=== PATIENT | male | born 1965 | race Caucasian/White ===

== ENCOUNTER 2019-12-10 09:36 | Inpatient (IN) | payer OTHER ==
[~2019-12-10] VITALS: Ht 193 cm; Wt 133.8 kg
[~2019-12-10 09:36] MED LIST: LISI-167 PO; OMEP40CA42 PO; RIVA15TA PO; RIVA20TA PO; TAMS0.4C2 PO
[2019-12-10] MEDS ORDERED: LACTATED RINGERS 1,000 ML IV SCH (10:30)
[2019-12-10 10:59] VITALS: BP 150/94
[2019-12-10] MEDS ORDERED: OXYB5TAB10 PO (10:59)
[2019-12-10] MEDS ORDERED: RIVA20TA PO (10:59)
[2019-12-10] MEDS ORDERED: CHLORHEXIDINE 15 ML UDC MM ONE (11:00)
[2019-12-10] MEDS ORDERED: FENTANYL PF 250 MCG/5ML ONE (11:16)
[2019-12-10] MEDS ORDERED: MIDAZOLAM 1 MG/ML, 2ML ONE (11:16)
[2019-12-10] MEDS ORDERED: CIPROFLOXACIN/PMX 400MG/200ML 200 ML ONE (11:47)
[2019-12-10] MEDS ORDERED: OPIUM/BELLADONNA SUPP.RECT 16.2-60 MG ONE (11:57)
[2019-12-10] MEDS ORDERED: hydrALAzine 20 MG/ML, 1ML IV PRN (12:00)
[2019-12-10] MEDS ORDERED: ONDANSETRON 2MG/ML, 2ML IVPush PRN (12:00)
[2019-12-10] MEDS ORDERED: LORazepam 2 MG/ML, 1ML IVPush PRN (12:00)
[2019-12-10] MEDS ORDERED: ACETAMINOPHEN 325 MG TABLET PO PRN (12:00)
[2019-12-10] MEDS ORDERED: PROMETHAZINE 25 MG SUPP PR PRN (12:00)
[2019-12-10] MEDS ORDERED: OXYcodone 5 MG/5 ML ORAL.SOL UDC PO PRN (12:00)
[2019-12-10] MEDS ORDERED: MEPERIDINE/PF 25MG/0.5ML IVPush PRN (12:00)
[2019-12-10] MEDS ORDERED: PROMETHAZINE 12.5 MG SUPP PR PRN (12:00)
[2019-12-10] MEDS ORDERED: PROMETHAZINE 25 MG/ML, 1ML IVPush PRN (12:00)
[2019-12-10] MEDS ORDERED: LABETALOL 5MG/ML, 20ML IV PRN (12:00)
[2019-12-10] MEDS ORDERED: HYDROmorphone 1 MG/ML, 1ML INJ IVPush PRN (12:00)
[2019-12-10] MEDS ORDERED: DEXAMETHASONE 4 MG/ML, 1ML ONE (12:35)
[2019-12-10] MEDS ORDERED: SUCCINYLCHOLINE 20 MG/ML, 10ML ONE (12:35)
[2019-12-10] MEDS ORDERED: FENTANYL PF 100 MCG/2ML ONE ×2 (12:35→13:49)
[2019-12-10] MEDS ORDERED: ONDANSETRON 2MG/ML, 2ML ONE (12:35)
[2019-12-10] MEDS ORDERED: ROCURONIUM 10MG/ML,5ML ONE (12:35)
[2019-12-10] MEDS ORDERED: NEOSTIGMINE 1 MG/ML, 10ML ONE (12:35)
[2019-12-10] MEDS ORDERED: GLYCOPYRROLATE 0.2MG/1ML, 5ML ONE (12:35)
[2019-12-10] MEDS ORDERED: PROPOFOL 10 MG/ML, 20ML ONE (12:35)
[2019-12-10] MEDS ORDERED: CEFAZOLIN 1,000 MG ONE (12:35)
[2019-12-10] MEDS ORDERED: MEPERIDINE/PF 25MG/ML,1ML ONE (13:30)
[2019-12-10] MEDS ORDERED: PROMETHAZINE 25 MG/ML, 1ML ONE (13:49)
[2019-12-10] MEDS: FENTANYL PF 100 MCG/2ML IV PRN ×2 (13:55→14:05)
[2019-12-10 15:00] VITALS: BP 154/82
[2019-12-10] MEDS ORDERED: ONDANSETRON 2MG/ML, 2ML IV PRN (15:00)
[2019-12-10] MEDS ORDERED: OPIUM/BELLADONNA SUPP.RECT 16.2-60 MG PR PRN (15:00)
[2019-12-10] MEDS: ACETAMINOPHEN 500 MG TABLET PO SCH ×2 (15:43→21:13)
[2019-12-10] MEDS: OXYcodone IR 5MG TABLET PO PRN ×2 (15:44→22:55)
[2019-12-10] MEDS: D5%-0.45NACL+KCL 20MEQ 1,000 ML IV SCH (15:45)
[2019-12-10] MEDS ORDERED: RIVAROXABAN 20 MG TABLET PO SCH (17:00)
[2019-12-10] MEDS: SULFAMETH./TRIMETHOPRIM DS 800MG/160MG TABLET PO SCH (21:13)
[2019-12-10 21:24] VITALS: BP 164/79
[2019-12-11] MEDS: HYDROmorphone 2 MG/ML, 1ML IV PRN ×3 (01:13→06:25)
[2019-12-11 03:25] VITALS: BP 140/65
[2019-12-11] MEDS: D5%-0.45NACL+KCL 20MEQ 1,000 ML IV SCH (06:00)
[2019-12-11] MEDS ORDERED: OMEPRAZOLE 20 MG CAPSULE.DR PO SCH (06:00)
[2019-12-11] MEDS: ACETAMINOPHEN 500 MG TABLET PO SCH ×2 (06:25→12:00)
[2019-12-11 07:10] VITALS: BP 157/71
[2019-12-11] MEDS: SULFAMETH./TRIMETHOPRIM DS 800MG/160MG TABLET PO SCH (07:38)
[2019-12-11] MEDS: OXYcodone IR 5MG TABLET PO PRN (07:38)
[2019-12-11] MEDS ORDERED: LISINOPRIL 10 MG TABLET PO SCH (09:00)
[2019-12-11] MEDS ORDERED: Sulfameth./Trimethoprim Ds PO (09:29)
== END 2019-12-11 12:10 | disposition home or self-care (01) | DRG 713 ==
LOC: OUT 09:36 → 4NE 14:44 → OUT 14:50 → 4NE 14:54 → DCLOUNGE 12-11 11:59
PROVIDERS: ADMIT Urology; ATTEND Urology
PROC: 0V508ZZ Destruction of Prostate, Via Natural or Artificial Opening Endoscopic (ICD-10-PCS; principal; 2019-12-10 11:30)
DX: N40.1 Benign prostatic hyperplasia with lower urinary tract symptoms (principal); N39.0 Urinary tract infection, site not specified; N13.8 Other obstructive and reflux uropathy; R33.8 Other retention of urine; Z88.0 Allergy status to penicillin; Z87.891 Personal history of nicotine dependence
CPT/HCPCS: 87635; G0378; J0690; J0744; J1100; J1170; J2175; J2250; J2405; J2550; J2704; J2710; J3010; J0330; J3480; J7120

== ENCOUNTER 2019-12-14 00:51 | Inpatient (IN) | payer OTHER ==
[~2019-12-14] VITALS: Ht 182.9 cm; Wt 135.1 kg
[~2019-12-14 00:51] MED LIST changes: +OXYB5TAB10 PO; +Sulfameth./Trimethoprim Ds PO
--- NOTE | 2019-12-14 01:10 | NUR ---
REPORT GIVEN TO ARIA GARZA
[2019-12-14] MEDS ORDERED: ONDANSETRON 2MG/ML, 2ML IVPush ONE (01:30)
[2019-12-14] MEDS ORDERED: SODIUM CHLORIDE FLUSH 10ML SYR IVF ONE (01:30)
[2019-12-14] MEDS ORDERED: SODIUM CHLORIDE 0.9% 1,000ML IVBOLUS ONE (01:30)
[2019-12-14] MEDS ORDERED: MORPHINE SULFATE 4 MG/ML, 1ML IVPush PRN ×2 (01:30→05:30)
[2019-12-14] MEDS ORDERED: MORPHINE SULFATE 4 MG/ML, 1ML ONE ×2 (01:53→04:06)
[2019-12-14] MEDS ORDERED: ONDANSETRON 2MG/ML, 2ML ONE (01:53)
--- NOTE | 2019-12-14 02:21 | NUR ---
IV STARTED, LABS DRAWN AND SENT, UA OBTAINED. IVF BOLUS STARTED AND MEDICATIONS GIVEN PER EMAR. BLADDER SCAN 258ML. POST RESIDUAL 196ML
[2019-12-14 02:37] LABS: BASOPHILS # (AUTO) 0.02 x10^3/uL (0-0.1); BASOPHILS % (AUTO) 0 % (0-1); EOSINOPHILS # (AUTO) 0.15 x10^3/uL (0-0.4); EOSINOPHILS % (AUTO) 2 % (1-7); LYMPHOCYTES # (AUTO) 0.54 x10^3/uL (1-3.4); LYMPHOCYTES % (AUTO) 6 % (22-44); MD NO; MEAN CORPUSCULAR HEMOGLOBIN 28.5 pg (27.5-34.5); MEAN CORPUSCULAR HGB CONC 33.8 g/dL (33.2-36.2); MEAN CORPUSCULAR VOLUME 84.4 fL (81-97); MEAN PLATELET VOLUME 7.4 fL (7.4-10.4); MONOCYTES # (AUTO) 0.61 x10^3/uL (0.2-0.8); MONOCYTES % (AUTO) 7 % (2-9); NEUTROPHILS # (AUTO) 7.63 x10^3/uL (1.8-6.8); NEUTROPHILS % (AUTO) 85 % (42-75); PLATELET COUNT 152 x10^3/uL (130-400); RED BLOOD COUNT 5.65 x10^6/uL (4.38-5.82); RED CELL DISTRIBUTION WIDTH 15.8 % (9.4-14.8)
[2019-12-14 02:39] LABS: MICROSCOPIC INDICATED
[2019-12-14 02:47] LABS: ALBUMIN 3.7 g/dL (3.4-5.0); ANION GAP 7 mmol/L (5-15); CALCIUM 8.6 mg/dL (8.5-10.1); CHLORIDE 107 mmol/L (98-107)
[2019-12-14 02:50] LABS: ALANINE AMINOTRANSFERASE 76 U/L (12-78); ALKALINE PHOSPHATASE 48 U/L (45-117); BILIRUBIN,TOTAL 0.7 mg/dL (0.2-1.0); CREATININE 1.11 mg/dL (0.7-1.3); TOTAL PROTEIN 7.2 g/dL (6.4-8.2)
--- NOTE | 2019-12-14 03:05 | NUR ---
HERNANDEZ CATHETER INSERTED UTILIZING STERILE TECHNIQUE.
--- NOTE | 2019-12-14 04:11 | NUR ---
PT TO AND FROM CT. AWAITING RESULTS.
--- NOTE | 2019-12-14 04:13 | NUR ---
TASK RN: PT REQUESTING MORE PAIN MEDICATION. PT MEDICATED FOR PAIN PER EMAR.
[2019-12-14] MEDS ORDERED: MORPHINE SULFATE 4 MG/ML, 1ML IVPush ONE (04:30)
[2019-12-14] MEDS ORDERED: OMNIPAQUE 350 MG/ML, 100ML BOTTLE ONE (04:38)
[2019-12-14] MEDS ORDERED: GENTAMICIN PER PHARMACY MC PRN (05:00)
[2019-12-14] MEDS ORDERED: SODIUM CHLORIDE 0.9% 1,000 ML IV ONE (05:01)
[2019-12-14] MEDS ORDERED: LEVOFLOXACIN/PMX 750MG/150ML 150 ML ONE (05:06)
[2019-12-14] MEDS: LEVOFLOXACIN/PMX 750MG/150ML 150 ML IV SCH (05:15)
[2019-12-14] MEDS ORDERED: SODIUM CHLORIDE FLUSH 10ML SYR IVF PRN (05:30)
[2019-12-14] MEDS ORDERED: ONDANSETRON 2MG/ML, 2ML IVPush PRN (05:30)
[2019-12-14] MEDS ORDERED: PROMETHAZINE 25 MG/ML, 1ML IM PRN (05:30)
--- NOTE | 2019-12-14 05:41 | NUR ---
LEVAQUIN STARTED ON IV PUMP. AWAITING INPATIENT BED PLACEMENT.
[2019-12-14 06:30] VITALS: BP 142/84
[2019-12-14 07:45] VITALS: BP 140/77
[2019-12-14 08:06] VITALS: BP 140/77
[2019-12-14] MEDS ORDERED: RIVAROXABAN 20 MG TABLET PO SCH ×2 (10:30→17:00)
[2019-12-14] MEDS ORDERED: OPIUM/BELLADONNA SUPP.RECT 16.2-60 MG PR PRN (13:00)
[2019-12-14 13:36] VITALS: BP 150/82
[2019-12-14] MEDS: OXYcodone IR 5MG TABLET PO PRN ×2 (13:38→23:06)
[2019-12-14] MEDS: ACETAMINOPHEN 325 MG TABLET PO PRN ×2 (13:38→23:05)
[2019-12-14] MEDS: DOCUSATE 100 MG CAPSULE PO SCH (13:38)
[2019-12-14] MEDS: LISINOPRIL 10 MG TABLET PO SCH (13:38)
[2019-12-14 19:00] VITALS: BP 144/80
[2019-12-15 01:46] VITALS: BP 150/82
[2019-12-15] MEDS: LEVOFLOXACIN/PMX 750MG/150ML 150 ML IV SCH (04:58)
[2019-12-15 05:33] LABS: BASOPHILS # (AUTO) 0.04 x10^3/uL (0-0.1); BASOPHILS % (AUTO) 1 % (0-1); EOSINOPHILS # (AUTO) 0.32 x10^3/uL (0-0.4); EOSINOPHILS % (AUTO) 4 % (1-7); LYMPHOCYTES # (AUTO) 1.46 x10^3/uL (1-3.4); LYMPHOCYTES % (AUTO) 16 % (22-44); MD NO; MEAN CORPUSCULAR HEMOGLOBIN 28.4 pg (27.5-34.5); MEAN CORPUSCULAR HGB CONC 33.7 g/dL (33.2-36.2); MEAN CORPUSCULAR VOLUME 84.3 fL (81-97); MEAN PLATELET VOLUME 7.3 fL (7.4-10.4); MONOCYTES # (AUTO) 0.94 x10^3/uL (0.2-0.8); MONOCYTES % (AUTO) 11 % (2-9); NEUTROPHILS # (AUTO) 6.21 x10^3/uL (1.8-6.8); NEUTROPHILS % (AUTO) 69 % (42-75); PLATELET COUNT 157 x10^3/uL (130-400); RED BLOOD COUNT 5.45 x10^6/uL (4.38-5.82); RED CELL DISTRIBUTION WIDTH 15.6 % (9.4-14.8)
[2019-12-15 05:36] LABS: ANION GAP 6 mmol/L (5-15); CALCIUM 8.2 mg/dL (8.5-10.1); CHLORIDE 107 mmol/L (98-107)
[2019-12-15 05:37] LABS: CREATININE 0.88 mg/dL (0.7-1.3)
[2019-12-15] MEDS ORDERED: RIVAROXABAN 20 MG TABLET PO SCH (06:00)
[2019-12-15 06:22] VITALS: BP 151/82
[2019-12-15] MEDS: DOCUSATE 100 MG CAPSULE PO SCH (08:45)
[2019-12-15] MEDS: LISINOPRIL 10 MG TABLET PO SCH (08:45)
[2019-12-15] MEDS: ACETAMINOPHEN 325 MG TABLET PO PRN (09:34)
[2019-12-15] MEDS: OXYcodone IR 5MG TABLET PO PRN (09:36)
[2019-12-15] MEDS ORDERED: OXYB5TAB10 PO (12:17)
[2019-12-15] MEDS ORDERED: LEVO750T26 PO (12:17)
== END 2019-12-15 16:11 | disposition home or self-care (01) | DRG 690 ==
LOC: ED 05:08 → EDIP 05:45 → 3N 06:41 → DCLOUNGE 12-15 15:59
PROVIDERS: ADMIT Urology; ATTEND Urology
DX: N39.0 Urinary tract infection, site not specified (principal); I10 Essential (primary) hypertension; N40.1 Benign prostatic hyperplasia with lower urinary tract symptoms; R33.8 Other retention of urine; N32.89 Other specified disorders of bladder; Z86.711 Personal history of pulmonary embolism; Z79.01 Long term (current) use of anticoagulants
CPT/HCPCS: 36415; 74177; 80048; 80053; 81001; 83605; 84145; 85025; 87040; 87077; 87086; 96361; 96374; 96375; 96376; G0378; J1956; J2405; Q9967; J2270; J7030

== ENCOUNTER 2020-01-07 06:50 | Inpatient (IN) | payer OTHER ==
[~2020-01-07] VITALS: Ht 193 cm; Wt 139.7 kg
[~2020-01-07 06:50] MED LIST changes: +LEVO750T26 PO
[2020-01-07 07:30] LABS: BASOPHILS # (AUTO) 0.03 x10^3/uL (0-0.1); BASOPHILS % (AUTO) 0 % (0-1); EOSINOPHILS % (AUTO) 3 % (1-7); LYMPHOCYTES # (AUTO) 1.91 x10^3/uL (1-3.4); LYMPHOCYTES % (AUTO) 25 % (22-44); MD NO; MONOCYTES # (AUTO) 0.57 x10^3/uL (0.2-0.8); MONOCYTES % (AUTO) 8 % (2-9); NEUTROPHILS # (AUTO) 4.81 x10^3/uL (1.8-6.8); NEUTROPHILS % (AUTO) 64 % (42-75); PLATELET COUNT 267 x10^3/uL (130-400); RED BLOOD COUNT 5.59 x10^6/uL (4.38-5.82); RED CELL DISTRIBUTION WIDTH 16.6 % (9.4-14.8)
[2020-01-07] MEDS ORDERED: SODIUM CHLORIDE FLUSH 10ML SYR IVF ONE (07:30)
[2020-01-07] MEDS ORDERED: PROMETHAZINE 25 MG/ML, 1ML IM ONE (07:30)
[2020-01-07] MEDS ORDERED: ONDANSETRON 2MG/ML, 2ML IVPush ONE (07:30)
[2020-01-07] MEDS ORDERED: FENTANYL PF 100 MCG/2ML IVPush ONE ×2 (07:30)
[2020-01-07] MEDS ORDERED: FENTANYL PF 100 MCG/2ML ONE ×7 (07:32→15:14)
[2020-01-07] MEDS ORDERED: ONDANSETRON 2MG/ML, 2ML ONE ×2 (07:32→14:42)
[2020-01-07] MEDS ORDERED: PROMETHAZINE 25 MG/ML, 1ML ONE (07:32)
[2020-01-07 07:40] LABS: PROTHROMBIN TIME 10.6 Seconds (9.6-11.5)
[2020-01-07 07:43] LABS: ALANINE AMINOTRANSFERASE 104 U/L (12-78); ALBUMIN 3.7 g/dL (3.4-5.0); ANION GAP 7 mmol/L (5-15); CALCIUM 8.5 mg/dL (8.5-10.1); CHLORIDE 114 mmol/L (98-107); CREATININE 1.18 mg/dL (0.7-1.3)
[2020-01-07 07:45] LABS: ALKALINE PHOSPHATASE 49 U/L (45-117); BILIRUBIN,TOTAL 0.6 mg/dL (0.2-1.0); TOTAL PROTEIN 7.2 g/dL (6.4-8.2)
[2020-01-07] MEDS ORDERED: LIDOCAINE 2%,20 ML JEL.PF.APP MM ONE (07:45)
[2020-01-07] MEDS ORDERED: LISI-170 PO (09:16)
--- NOTE | 2020-01-07 09:17 | NUR ---
INSERTED 22FR 3-WAY HERNANDEZ FOR URINARY RETENTION WITH PAIN AND SMALL AMOUNT OF HEMATURIA/DYSURIA. PT TOLERATED WELL. CATHETER WAS INSERTED WITH NO RESISTANCE AND IMMEDIATE PURPLE MAROON COLORED URINE BEGAN FLOWING INTO THE CATHETER. CBI WAS INITIATED. UROLOGY JAIDEN GRANT, AT BEDSIDE FLUSHING BLADDER AND REMOVING CLOTS.
--- NOTE | 2020-01-07 09:33 | NUR ---
PT MEDICATED WITH AN ADDITIONAL 50MCG FOR PAIN.
[2020-01-07 09:43] LABS: MICROSCOPIC INDICATED
[2020-01-07] MEDS ORDERED: FENTANYL PF 100 MCG/2ML IV ONE ×2 (10:00)
--- NOTE | 2020-01-07 10:23 | NUR ---
SBAR HAND-OFF REPORT GIVEN TO ARIA MORATAYA.
[2020-01-07] MEDS ORDERED: LORazepam 1MG TABLET PO PRN (10:30)
[2020-01-07] MEDS ORDERED: hydrALAzine 20 MG/ML, 1ML IVPush PRN (10:30)
[2020-01-07] MEDS ORDERED: OPIUM/BELLADONNA SUPP.RECT 16.2-30 MG PR ONE (10:30)
[2020-01-07] MEDS ORDERED: ONDANSETRON 2MG/ML, 2ML IVPush PRN ×2 (10:30→15:00)
[2020-01-07] MEDS ORDERED: ONDANSETRON ODT 4 MG PO PRN (10:30)
[2020-01-07] MEDS ORDERED: CEFTRIAXONE PMX 1GM/50ML 50 ML IV ONE (10:30)
[2020-01-07] MEDS ORDERED: CEFTRIAXONE PMX 1GM/50ML 50 ML ONE (10:32)
--- NOTE | 2020-01-07 10:33 | NUR ---
TASK RN: SECOND 3L ML BAG OF IRRIGATION ADMINISTERD (URINE STILL MEDIUM PINK) UROLOGY AND HOSPITALIST TO BEDSIDE-PLAN TO HAVE CYSTOSCOPY THIS AFTERNOON MEDICATED PER EMAR WITH ADDITIONAL 50MCG OF FENTANYL SWEATING IN PAIN D/T MANULA IRRIGATION FOR UROLOGIST SAFETY OF ROCEPHIN QUESTIONED WITH HOSPITALIST/ER MD/PHARMCY-ASSURED SAFETY-ADMINISTERD PER PHARMACY
--- NOTE | 2020-01-07 10:44 | NUR ---
COVID SWAB OBTAINED-WALKED TO LAB (R/O TEST PLANNED OPERATION THIS AFTERNOON)
--- NOTE | 2020-01-07 10:45 | NUR ---
TO REACTION TO ROCEPHIN NOTED THUS FAR
--- NOTE | 2020-01-07 11:49 | NUR ---
SBAR TELEPHONE HAND-OFF REPORT GIVEN TO HEAVEN PRE-OP RN.
--- NOTE | 2020-01-07 12:00 | NUR ---
PT CONTINUES TO BE ON CONTINUOUS BLADDER IRRIGATION WITH URINE PALE PINK TO STRAWBERRY RED AT TIMES.
[2020-01-07] MEDS ORDERED: MIDAZOLAM 1 MG/ML, 2ML ONE (12:27)
[2020-01-07] MEDS: LACTATED RINGERS 1,000 ML IV SCH (12:32)
--- NOTE | 2020-01-07 12:48 | NUR ---
TRANSPORTED PATIENT ON RN MENTAL HEALTH TO PRE-OP ROOM 11. PT STABLE AND IN NSR.
[2020-01-07] MEDS ORDERED: CHLORHEXIDINE 15 ML UDC MM STA (13:04)
[2020-01-07] MEDS ORDERED: CHLORHEXIDINE 15 ML UDC ONE (13:06)
[2020-01-07] MEDS ORDERED: GLYCOPYRROLATE 0.2MG/1ML, 5ML ONE (14:42)
[2020-01-07] MEDS ORDERED: NEOSTIGMINE 1 MG/ML, 10ML ONE (14:42)
[2020-01-07] MEDS ORDERED: SUCCINYLCHOLINE 20 MG/ML, 10ML ONE (14:42)
[2020-01-07] MEDS ORDERED: DEXAMETHASONE 4 MG/ML, 1ML ONE (14:42)
[2020-01-07] MEDS ORDERED: CEFAZOLIN 1,000 MG ONE (14:42)
[2020-01-07] MEDS ORDERED: ROCURONIUM 10MG/ML,5ML ONE (14:42)
[2020-01-07] MEDS ORDERED: PROPOFOL 10 MG/ML, 20ML ONE (14:42)
[2020-01-07] MEDS ORDERED: LABETALOL 5MG/ML, 20ML IV PRN (15:00)
[2020-01-07] MEDS ORDERED: PROMETHAZINE 25 MG/ML, 1ML IVPush PRN (15:00)
[2020-01-07] MEDS ORDERED: LORazepam 2 MG/ML, 1ML IVPush PRN (15:00)
[2020-01-07] MEDS ORDERED: OXYcodone 5 MG/5 ML ORAL.SOL UDC PO PRN (15:00)
[2020-01-07] MEDS ORDERED: METHOCARBAMOL 1,000 MG in DEXTROSE 5% 100 ML IV PRN (15:00)
[2020-01-07] MEDS ORDERED: ACETAMINOPHEN 325 MG TABLET PO PRN (15:00)
[2020-01-07] MEDS ORDERED: HYDROmorphone 1 MG/ML, 1ML INJ IVPush PRN (15:00)
[2020-01-07] MEDS ORDERED: PROMETHAZINE 25 MG SUPP PR PRN (15:00)
[2020-01-07] MEDS ORDERED: hydrALAzine 20 MG/ML, 1ML IV PRN (15:00)
[2020-01-07] MEDS ORDERED: FENTANYL PF 100 MCG/2ML IV PRN (15:00)
[2020-01-07] MEDS ORDERED: MEPERIDINE/PF 25MG/0.5ML IVPush PRN (15:00)
[2020-01-07] MEDS ORDERED: OXYcodone 5 MG/5 ML ORAL.SOL UDC ONE (15:14)
[2020-01-07] MEDS: OXYcodone IR 5MG TABLET PO PRN ×2 (15:36→20:53)
[2020-01-07 16:25] VITALS: BP 107/69
[2020-01-07 19:06] VITALS: BP 113/69
[2020-01-07] MEDS: ACETAMINOPHEN 325 MG TABLET PO PRN (20:54)
[2020-01-07] MEDS: TEMAZEPAM 15 MG CAPSULE PO PRN (22:36)
[2020-01-08 01:24] VITALS: BP 113/68
[2020-01-08] MEDS: OXYcodone IR 5MG TABLET PO PRN ×5 (02:48→23:16)
[2020-01-08] MEDS: LACTATED RINGERS 1,000 ML IV SCH ×3 (02:54→16:30)
[2020-01-08 04:47] VITALS: BP 104/56
[2020-01-08 05:19] LABS: MEAN CORPUSCULAR HEMOGLOBIN 28.6 pg (27.5-34.5); MEAN CORPUSCULAR HGB CONC 33.4 g/dL (33.2-36.2); MEAN CORPUSCULAR VOLUME 85.6 fL (81-97); MEAN PLATELET VOLUME 7.4 fL (7.4-10.4); PLATELET COUNT 204 x10^3/uL (130-400); RED BLOOD COUNT 4.45 x10^6/uL (4.38-5.82); RED CELL DISTRIBUTION WIDTH 16.2 % (9.4-14.8)
[2020-01-08 05:22] LABS: ALANINE AMINOTRANSFERASE 77 U/L (12-78); ALBUMIN 2.9 g/dL (3.4-5.0); ANION GAP 5 mmol/L (5-15); CALCIUM 7.9 mg/dL (8.5-10.1); CHLORIDE 110 mmol/L (98-107); CREATININE 0.99 mg/dL (0.7-1.3)
[2020-01-08 05:33] LABS: ALKALINE PHOSPHATASE 43 U/L (45-117); BILIRUBIN,TOTAL 0.3 mg/dL (0.2-1.0); TOTAL PROTEIN 5.7 g/dL (6.4-8.2)
[2020-01-08 06:05] LABS: BASOPHILS % (AUTO) 0 % (0-1); EOSINOPHILS % (AUTO) 0 % (1-7); LYMPHOCYTES # (AUTO) 0.56 x10^3/uL (1-3.4); LYMPHOCYTES % (AUTO) 6 % (22-44); MD SCAN; MONOCYTES # (AUTO) 0.34 x10^3/uL (0.2-0.8); MONOCYTES % (AUTO) 3 % (2-9); NEUTROPHILS # (AUTO) 9.17 x10^3/uL (1.8-6.8); NEUTROPHILS % (AUTO) 91 % (42-75)
[2020-01-08 08:00] VITALS: BP 144/66
[2020-01-08] MEDS: ACETAMINOPHEN 325 MG TABLET PO PRN (08:11)
[2020-01-08] MEDS ORDERED: SODIUM PHOSPHATE 20 MMOL in SODIUM CHLORIDE 0.9% 500 ML IV ONE (09:00)
[2020-01-08] MEDS: CEFTRIAXONE PMX 1GM/50ML 50 ML IV SCH (10:38)
[2020-01-08] MEDS: morphine SULFATE 10 MG/ML, 1ML IVPush PRN (12:05)
[2020-01-08 13:29] VITALS: BP 134/62
[2020-01-08] MEDS: HEPARIN 25,000 UNITS/250ML PMX 250 ML IV PRN (18:33)
[2020-01-08 20:23] VITALS: BP 129/65
[2020-01-08] MEDS: TEMAZEPAM 15 MG CAPSULE PO PRN (23:16)
[2020-01-09] MEDS: OXYcodone IR 5MG TABLET PO PRN ×5 (01:20→23:20)
[2020-01-09] MEDS: ACETAMINOPHEN 325 MG TABLET PO PRN ×5 (01:20→23:19)
[2020-01-09] MEDS: morphine SULFATE 10 MG/ML, 1ML IVPush PRN ×2 (01:35→09:47)
[2020-01-09 02:00] VITALS: BP 130/74
[2020-01-09] MEDS ORDERED: OPIUM/BELLADONNA SUPP.RECT 16.2-30 MG PR PRN ×2 (05:30→15:00)
[2020-01-09 05:53] LABS: MEAN CORPUSCULAR HEMOGLOBIN 28.3 pg (27.5-34.5); MEAN CORPUSCULAR HGB CONC 32.5 g/dL (33.2-36.2); MEAN PLATELET VOLUME 7.1 fL (7.4-10.4); PLATELET COUNT 160 x10^3/uL (130-400); RED CELL DISTRIBUTION WIDTH 16.7 % (9.4-14.8)
[2020-01-09 06:00] LABS: ANION GAP 5 mmol/L (5-15); CALCIUM 7.9 mg/dL (8.5-10.1); CHLORIDE 112 mmol/L (98-107)
[2020-01-09 06:02] LABS: CREATININE 0.75 mg/dL (0.7-1.3)
[2020-01-09 06:50] LABS: BASOPHILS # (AUTO) 0.03 x10^3/uL (0-0.1); BASOPHILS % (AUTO) 0 % (0-1); EOSINOPHILS # (AUTO) 0.13 x10^3/uL (0-0.4); EOSINOPHILS % (AUTO) 2 % (1-7); LYMPHOCYTES # (AUTO) 2.06 x10^3/uL (1-3.4); LYMPHOCYTES % (AUTO) 24 % (22-44); MD SCAN; MONOCYTES % (AUTO) 6 % (2-9); NEUTROPHILS # (AUTO) 5.94 x10^3/uL (1.8-6.8); NEUTROPHILS % (AUTO) 69 % (42-75)
[2020-01-09 08:14] VITALS: BP 119/72
[2020-01-09] MEDS: HEPARIN 25,000 UNITS/250ML PMX 250 ML IV PRN ×3 (09:11→16:41)
[2020-01-09] MEDS ORDERED: MORPHINE SULFATE 4 MG/ML, 1ML ONE (09:45)
[2020-01-09] MEDS: CEFTRIAXONE PMX 1GM/50ML 50 ML IV SCH (11:58)
[2020-01-09 13:59] VITALS: BP 125/70
[2020-01-09 20:04] VITALS: BP 144/72
[2020-01-09] MEDS ORDERED: TEMAZEPAM 30 MG CAPSULE PO PRN (23:30)
[2020-01-10] MEDS: HEPARIN 25,000 UNITS/250ML PMX 250 ML IV PRN (02:52)
[2020-01-10 02:56] VITALS: BP 135/80
[2020-01-10 05:09] LABS: BASOPHILS # (AUTO) 0.02 x10^3/uL (0-0.1); BASOPHILS % (AUTO) 0 % (0-1); EOSINOPHILS # (AUTO) 0.24 x10^3/uL (0-0.4); EOSINOPHILS % (AUTO) 3 % (1-7); LYMPHOCYTES # (AUTO) 2.05 x10^3/uL (1-3.4); LYMPHOCYTES % (AUTO) 28 % (22-44); MD NO; MEAN CORPUSCULAR HEMOGLOBIN 28.9 pg (27.5-34.5); MEAN CORPUSCULAR HGB CONC 33.6 g/dL (33.2-36.2); MEAN CORPUSCULAR VOLUME 85.8 fL (81-97); MEAN PLATELET VOLUME 7.4 fL (7.4-10.4); MONOCYTES % (AUTO) 7 % (2-9); NEUTROPHILS # (AUTO) 4.53 x10^3/uL (1.8-6.8); NEUTROPHILS % (AUTO) 62 % (42-75); PLATELET COUNT 148 x10^3/uL (130-400); RED BLOOD COUNT 4.33 x10^6/uL (4.38-5.82); RED CELL DISTRIBUTION WIDTH 16.8 % (9.4-14.8)
[2020-01-10 05:19] LABS: ANION GAP 4 mmol/L (5-15); CALCIUM 8.1 mg/dL (8.5-10.1); CHLORIDE 110 mmol/L (98-107); CREATININE 0.86 mg/dL (0.7-1.3)
[2020-01-10 08:45] VITALS: BP 144/85
[2020-01-10] MEDS: OXYcodone IR 5MG TABLET PO PRN ×3 (09:10→15:03)
[2020-01-10] MEDS: ACETAMINOPHEN 325 MG TABLET PO PRN (09:11)
[2020-01-10] MEDS: morphine SULFATE 10 MG/ML, 1ML IVPush PRN (11:47)
[2020-01-10] MEDS: CEFTRIAXONE PMX 1GM/50ML 50 ML IV SCH (12:22)
[2020-01-10 15:12] VITALS: BP 137/82
[2020-01-10] MEDS ORDERED: HEPARIN 25,000 UNITS/250ML PMX 250 ML IV PRN (16:30)
[2020-01-10] MEDS: APIXABAN 5 MG TABLET PO SCH (18:00)
[2020-01-10 19:59] VITALS: BP 123/67
[2020-01-11] MEDS: ACETAMINOPHEN 325 MG TABLET PO PRN (02:53)
[2020-01-11 03:08] VITALS: BP 130/69
[2020-01-11] MEDS: APIXABAN 5 MG TABLET PO SCH (06:35)
[2020-01-11 07:25] VITALS: BP 167/81
[2020-01-11] MEDS ORDERED: APIX5TAB PO (09:06)
[2020-01-11 12:12] VITALS: BP 158/64
[2020-01-11] MEDS: CEFTRIAXONE PMX 1GM/50ML 50 ML IV SCH (12:30)
== END 2020-01-11 13:00 | disposition home or self-care (01) | DRG 713 ==
LOC: ED 09:00 → EDIP 09:15 → 4NE 16:35 → DCLOUNGE 01-11 12:33
PROVIDERS: ADMIT Internal Medicine; ATTEND Family Medicine
PROC: 0TCB8ZZ Extirpation of Matter from Bladder, Via Natural or Artificial Opening Endoscopic (ICD-10-PCS; 2020-01-07)
PROC: 0T5C8ZZ Destruction of Bladder Neck, Via Natural or Artificial Opening Endoscopic (ICD-10-PCS; 2020-01-07)
PROC: 0V508ZZ Destruction of Prostate, Via Natural or Artificial Opening Endoscopic (ICD-10-PCS; principal; 2020-01-07 13:00)
DX: N40.1 Benign prostatic hyperplasia with lower urinary tract symptoms (principal); N13.8 Other obstructive and reflux uropathy; N39.0 Urinary tract infection, site not specified; R31.0 Gross hematuria; I10 Essential (primary) hypertension; T45.515A Adverse effect of anticoagulants, initial encounter; R33.8 Other retention of urine; N32.89 Other specified disorders of bladder; F32.9 Major depressive disorder, single episode, unspecified; Z20.828 Contact with and (suspected) exposure to other viral communicable diseases; Z79.01 Long term (current) use of anticoagulants; Z86.711 Personal history of pulmonary embolism; Z87.891 Personal history of nicotine dependence; Z88.0 Allergy status to penicillin; Z88.2 Allergy status to sulfonamides; Y83.8 Other surgical procedures as the cause of abnormal reaction of the patient, or of later complication, without mention of misadventure at the time of the procedure
CPT/HCPCS: 36415; 80048; 80053; 81001; 83735; 84100; 84443; 85014; 85018; 85025; 85520; 85610; 86850; 86900; 87040; 87086; 87635; 93005; 93970; 96372; 96374; 96375; 96376; 99291; G0378; J0690; J0696; J1100; J2250; J2405; J2550; J2704; J2710; J3010; Q0162; J0330; J2270; J2800; J7040; J7120